=== PATIENT | female | born 1995 | race Caucasian/White ===

== ENCOUNTER 2018-10-19 16:24 | Emergency (ER) | payer SELFPAY ==
[2018-10-19 17:49] VITALS: BP 127/81
--- NOTE | 2018-10-19 18:20 | UC ---
Throat Pain/Nasal Pritesh HPI - HPI Summary HPI Summary: Mild sore throat and fatigue over the past few days. - History of Current Complaint Chief Complaint: UCGeneralIllness Stated Complaint: SORE THROAT Time Seen by Provider: 10/19/18 17:56 Hx Obtained From: Patient Hx Last Menstrual Period: 08/17/18 is irregualr ?: No Onset/Duration: Gradual Onset Severity: Mild Pain Intensity: 6 Cough: None - Allergies/Home Medications Allergies/Adverse Reactions: Allergies Allergy/AdvReac Type Severity Reaction Status Date / Time No Known Allergies Allergy Verified 10/19/18 17:48 Home Medications: Home Medications NK [No Home Medications Reported] 10/19/18 [History Confirmed 10/19/18] PMH/Surg Hx/FS Hx/Imm Hx Previously Healthy: Yes - Surgical History Surgical History: None Surgery Procedure, Year, and Place: denies - Social History Alcohol Use: Weekly Substance Use Type: None Smoking Status (MU): Never Smoked Tobacco Review of Systems All Other Systems Reviewed And Are Negative: Yes Constitutional: Positive: Negative Skin: Positive: Negative Eyes: Positive: Negative ENT: Positive: Sore Throat - Mild sore throat Respiratory: Positive: Negative Cardiovascular: Positive: Negative Gastrointestinal: Positive: Negative Genitourinary: Positive: Negative Motor: Positive: Negative Neurovascular: Positive: Negative Musculoskeletal: Positive: Negative Neurological: Positive: Negative, Other - Fatigue Psychological: Positive: Negative Is Patient Immunocompromised?: No Physical Exam Triage Information Reviewed: Yes Appearance: Well-Appearing, No Pain Distress, Well-Nourished Vital Signs: Initial Vital Signs Temp 98.3 F 10/19/18 17:43 Pulse 79 10/19/18 17:43 Resp 18 10/19/18 17:43 BP 127/81 10/19/18 17:43 Pulse Ox 100 10/19/18 17:43 Vital Signs Reviewed: Yes Eye Exam: Normal ENT: Positive: Tonsillar swelling, Tonsillar exudate, Uvula midline. Negative: Pharyngeal erythema, Trismus Neck exam: Normal Neck: Positive: Enlarged Nodes @ - Right tonsillar lymph node mildly enlarged Respiratory Exam: Normal Cardiovascular Exam: Normal Abdominal Exam: Normal Bowel Sounds: Positive: Present Musculoskeletal Exam: Normal Neurological Exam: Normal Neurological: Positive: Alert, Muscle Tone Normal Psychological Exam: Normal Skin Exam: Normal Throat Pain/Nasal Course/Dx - Course Course Of Treatment: Comfortable here. Rapid strep negative, discussed possible Pierce, to follow up with PCP if no improvement early next week or sooner if worsening symptoms. - Differential Dx/Diagnosis Provider Diagnosis: Pharyngitis Discharge - Sign-Out/Discharge Documenting (check all that apply): Patient Departure All imaging exams completed and their final reports reviewed: No Studies - Discharge Plan Condition: Good Disposition: HOME Patient Education Materials: Pharyngitis (ED) Referrals: No Primary Care Phys,NOPCP [Primary Care Provider] - Additional Instructions: You can call [facility] which will help you find a primary care provider at [phone]. Warm, salt water gargles, throat lozenges, Motrin for pain. - Billing Disposition and Condition Condition: GOOD Disposition: Home
== END 2018-10-19 18:28 | disposition home or self-care (01) ==
LOC: UCEAST 16:24
DX: J02.9 Acute pharyngitis, unspecified (principal)
CPT/HCPCS: 87651; 99201; G0463